=== PATIENT | male | born 1970 ===

== ENCOUNTER 2022-08-31 07:22 | Day surgery (SDC) | payer OTHER ==
[~2022-08-31] VITALS: Ht 185.4 cm; Wt 173.7 kg
[2022-08-31 07:45] VITALS: BP 153/97; PULSE 84; TEMP 97.1
[2022-08-31 09:00] VITALS: BP 150/100; PULSE 92; TEMP 97.1
[2022-08-31 09:15] VITALS: BP 149/99; PULSE 88
[2022-08-31 09:28] VITALS: BP 148/95; PULSE 88
--- NOTE | 2022-08-31 09:35 | NUR ---
0900 RETURNS TO ROOM 8 PER CART. AWAKE, ALERT. AMBULATES TO RECLINER WITH STANDBY ASSIST. RESP UNLABORED. DENIES NAUSEA OR ABD PAIN. VITAL SIGNS OBTAINED. CALL LIGHT AT SIDE. IN ROOM 0901 DR. HOU HERE TO VISIT WITH PATIENT. 0910 TOLERATES PO JUICE AND PUDDING WITHOUT NAAUSEA. DR. HOU NOTIFIED OF BLOOD PRESSURE. ADDRESSED WITH PATIENT 0915 DISCHARGE INSTRUCTIONS REVIEWED. PATIENT VERBALIZES UNDERSTANDING. COPY PROVIDED IN DISCHARGE FOLDER [id number] DRESSES SELF
== END 2022-08-31 09:35 | disposition home or self-care (01) ==
LOC: SDCO 07:22
DX: Z12.11 Encounter for screening for malignant neoplasm of colon (principal); D12.5 Benign neoplasm of sigmoid colon
CPT/HCPCS: J2704; J7120